=== PATIENT | female | born 1980 | race American Indian/Alaskan Native ===

== ENCOUNTER 2020-02-05 07:20 | Emergency (ER) | payer OTHER ==
[2020-02-05 07:24] VITALS: BP 133/47
[2020-02-05] MEDS ORDERED: ACETAMINOPHEN 325 MG TAB PO ONE (08:06)
[2020-02-05] MEDS ORDERED: ONDANSETRON 4 MG ODT TAB PO ONE (08:06)
--- NOTE | 2020-02-05 08:09 | Emergency Department Report ---
HPI - General Chief Complaint: Abdominal Pain Time Seen by Provider: 02/05/20 08:06 - HPI HPI: This is a 39-year-old -[place] female presents to the emergency department with a complaint of a 3-day history of progressively worsening right- sided pelvic pain and a 1 day history of nausea with vomiting. Patient is also concerned as she says that she missed her last menstrual cycle and last had 1 in December and "I never miss my period." She does admit to a history of endometriosis. She also says that she is occasionally had a few days of very mi ld spotting. She denies any vaginal discharge, dysuria. The pelvic pain is also associated with some low back pain. She has not taken anything for symptoms prior to presentation. The patient has taken 3 home tests recently that have all resulted as negative. Currently the pelvic pain is 6 out of 10. The pain worsens when laying on that right side. ED Past Medical Hx - Past Medical History Previous Medical History?: Yes Additional medical history: Endometriosis - Social History Smoking Status: Never Smoker Substance Use Type: None - Medications Home Medications: Home Medications Medication Instructions Recorded Confirmed Last Taken Type Ibuprofen [Motrin 600 MG tab] 600 mg PO Q8H PRN #20 tablet 02/05/20 Unknown Rx ED Review of Systems ROS: Stated complaint: ABD PAIN Other details as noted in HPI Comment: All other systems reviewed and negative Constitutional: denies: chills, fever Eyes: denies: eye pain, vision change ENT: denies: ear pain, throat pain Respiratory: denies: cough, shortness of breath Cardiovascular: denies: chest pain, palpitations Gastrointestinal: nausea, vomiting. denies: abdominal pain Genitourinary: abnormal menses, other (pelvic pain). denies: dysuria, discharge Musculoskeletal: back pain. denies: arthralgia Skin: denies: rash, lesions Neurological: denies: headache, weakness Physical Exam - Physical Exam Vital Signs: Vital Signs 02/05/20 07:23 Temperature 98.2 F Pulse Rate 73 Respiratory 16 Rate Blood Pressure 133/47 [Right] O2 Sat by Pulse 98 Oximetry Physical Exam: GENERAL: The patient is well-developed well-nourished. HENT: Normocephalic. Atraumatic. Patient has moist mucous membranes. EYES: Extraocular motions are intact. NECK: Supple. Trachea is midline. CHEST/LUNGS: Clear to auscultation. There is no respiratory distress noted. HEART/CARDIOVASCULAR: Regular. There is no tachycardia. ABDOMEN: Abdomen is soft, nontender. Patient has normal bowel sounds. There is no abdominal distention. SKIN: Skin is warm and dry. NEURO: The patient is awake, alert, and oriented. The patient is cooperative. Normal speech. MUSCULOSKELETAL: There is no tenderness or deformity. ED Course Vital Signs 02/05/20 07:23 Temperature 98.2 F Pulse Rate 73 Respiratory 16 Rate Blood Pressure 133/47 [Right] O2 Sat by Pulse 98 Oximetry ED Medical Decision Making - Lab Data Result diagrams: 02/05/20 08:16 02/05/20 08:16 - Radiology Data Radiology results: report reviewed Ultrasound, pelvic (nonobstetric), real-time with image documentation; transabdominal and transvaginal imaging with Doppler was performed. FINDINGS: The uterus is of normal size and echogenicity. Uterus measures 9.1 x 4.7 x 6.2 cm There are no uterine masses. Endometrial thickness measures 0.93 cm The right and left ovaries are of symmetric size and echogenicity. There are no ovarian or adnexal masses. Follicular cyst are noted both ovaries Doppler imaging demonstrates normal vascular flow to both ovaries. There is no significant quantity of free fluid dependently within the pelvis. IMPRESSION: Unremarkable routine ultrasound. - Medical Decision Making This patient presents with a 3-day history of some right-sided pelvic pain and a 1 day history of some nausea and vomiting. She was given Tylenol, Zofran and eventually Toradol. Labs unremarkable including CBC, metabolic panel and the patient is not . Transvaginal/pelvic ultrasound does not show any acute process including any ovarian torsion. Vital signs reassuring throughout her ED course. Patient will be discharged home to follow-up with an [facility]. She will return to the ER with any worsening of her symptoms or with any acute distress. Critical Care Time: No Critical care attestation.: If time is entered above; I have spent that time in minutes in the direct care of this critically ill patient, excluding procedure time. ED Disposition Clinical Impression: Pelvic pain, Irregular menstrual cycle, History of endometriosis Disposition: - TO HOME OR SELFCARE Is pt being admited?: No Condition: Stable Instructions: Abdominal Pain (ED) Additional Instructions: Please follow-up with your [facility] in the next few days. Return to the emergency department with any worsening of your symptoms or with any acute distress. Prescriptions: Ibuprofen [Motrin 600 MG tab] 600 mg PO Q8H PRN #20 tablet PRN Reason: Pain Referrals: HEIDI GALVAN MD [Other] - 3-5 Days [facility] [Other] - 3-5 Days Time of Disposition: 10:31
[2020-02-05 08:33] LABS: Basophils % (Auto) 0.6 % (0.0-1.8); Eosinophils # (Auto) 0.2 K/mm3 (0.0-0.4); Eosinophils % (Auto) 2.4 % (0.0-4.3); Hemoglobin 13.5 gm/dl (10.1-14.3); Lymphocytes # (Auto) 1.4 K/mm3 (1.2-5.4); Lymphocytes % (Auto) 21.1 % (13.4-35.0); Mean Corpuscular HGB Conc 34 % (30-34); Mean Corpuscular Volume 96 fl (79-97); Monocytes # (Auto) 0.5 K/mm3 (0.0-0.8); Monocytes % (Auto) 8.1 % (0.0-7.3); Platelet Count 203 K/mm3 (140-440); Red Blood Count 4.16 M/mm3 (3.65-5.03); Red Cell Distribution Width 13.3 % (13.2-15.2)
[2020-02-05 08:55] LABS: Blood Urea Nitrogen 11 mg/dL (7-17); Calcium 8.9 mg/dL (8.4-10.2); Hemolysis Index 19
[2020-02-05] MEDS ORDERED: KETOROLAC 30 MG/1 ML INJ IM ONE (08:57)
[2020-02-05 08:58] LABS: BUN/Creatinine Ratio 16
--- NOTE | 2020-02-05 10:26 | Ultrasound Report ---
CLINICAL DATA: right sided pelvic pain TECHNICAL DATA: Ultrasound, pelvic (nonobstetric), real-time with image documentation; transabdominal and transvagina l imaging with Doppler was performed. FINDINGS: The uterus is of normal size and echogenicity. Uterus measures 9.1 x 4.7 x 6.2 cm There are no uterin e masses. Endometrial thickness measures 0.93 cm The right and left ovaries are of symmetric size and echogenicity. There are no ovarian or adnexal ma sses. Follicular cyst are noted both ovaries Doppler imaging demonstrates normal vascular flow to both ovaries. There is no significant quantity of free fluid dependently within the pelvis. IMPRESSION: Unremarkable routine ultrasound. GUIDELINES FOR IMAGING OF OVARIAN--ADNEXAL CYST: WOMEN OF REPRODUCTIVE AGE: 1. Cysts <=3 cm: Normal physiologic findings; at the discretion of the interpreting physician whether or not to describe them in the imaging report; do not need follow-up. 2. Cysts >3 and <=5 cm: Should be described in the imaging report with a statement that they are almo st certainly benign; do not need follow-up. 3. Cysts >5 and <=7 cm: Should be described in the imaging report with a statement that they are almo st certainly benign; yearly follow-up with US recommended. 4. Cysts >7 cm: Since these may be difficult to assess completely with US, further imaging with magne tic resonance (MR) or surgical evaluation should be considered. POSTMENOPAUSAL WOMEN: 1. Cysts <=1 cm: Are clinically inconsequential; at the discretion of the interpreting physician whet her or not to describe them in the imaging report; do not need follow-up. 2. Cysts >1 and <=7 cm: Should be described in the imaging report with statement that they are almost certainly benign; yearly follow-up, at least initially, with US recommended. Some practices may opt to increase the lower size threshold for follow-up from 1 cm to as high as 3 cm. One may opt to konrad nue follow-up annually or to decrease the frequency of follow-up once stability or decrease in size h as been confirmed. Cysts in the larger end of this range should still generally be followed on a regu lar basis. 3. Cysts >7 cm: Since these may be difficult to assess completely with US, further imaging with MR or surgical evaluation should be considered. Signer Name: Brock Gordillo MD Signed: 02/05/2020 10:22 AM Workstation Name: [id number]
== END 2020-02-05 10:38 | disposition home or self-care (01) ==
LOC: ED 07:20
DX: R10.2 Pelvic and perineal pain (principal); N92.6 Irregular menstruation, unspecified; N80.9 Endometriosis, unspecified; R11.2 Nausea with vomiting, unspecified; Z79.1 Long term (current) use of non-steroidal anti-inflammatories (NSAID)
CPT/HCPCS: 36415; 76830; 80048; 84703; 85025; 93975; 96372; 99284; J1885; Q0162